=== PATIENT | female | born 1995 | race American Indian/Alaskan Native ===

== ENCOUNTER 2017-08-31 20:17 | Emergency (ER) | payer SELFPAY ==
[2017-08-31 20:54] LABS: Bacteria,Urine 1+ /HPF (Negative); Bilirubin,Urine NEG (Negative); Blood,Urine NEG (Negative); Color,Urine Straw (Yellow); Protein,Urine <15 mg/dL mg/dL (Negative); Urobilinogen,Urine < 2.0 mg/dL (<2.0); WBC,Urine < 1.0 /HPF (0.0-6.0)
[2017-08-31 20:58] LABS: Basophils # (Auto) 0.1 K/mm3 (0.0-0.1); Basophils % (Auto) 0.5 % (0.0-1.8); Eosinophils # (Auto) 0.2 K/mm3 (0.0-0.4); Eosinophils % (Auto) 1.5 % (0.0-4.3); Hematocrit 40.9 % (30.3-42.9); Hemoglobin 12.7 gm/dl (10.1-14.3); Lymphocytes # (Auto) 3.7 K/mm3 (1.2-5.4); Mean Corpuscular HGB Conc 31 % (30-34); Mean Corpuscular Volume 72 fl (79-97); Monocytes # (Auto) 0.8 K/mm3 (0.0-0.8); Monocytes % (Auto) 4.7 % (0.0-7.3); Platelet Count 504 K/mm3 (140-440); Red Blood Count 5.66 M/mm3 (3.65-5.03); Red Cell Distribution Width 17.9 % (13.2-15.2)
[2017-08-31 21:02] LABS: Mean Corpuscular Hemoglobin 22 pg (28-32)
[2017-08-31 21:36] LABS: Alanine Aminotransferase 47 units/L (7-56); Albumin 4.5 g/dL (3.9-5); BUN/Creatinine Ratio 8; Blood Urea Nitrogen 6 mg/dL (7-17); Calcium 9.5 mg/dL (8.4-10.2); Hemolysis Index 8
[2017-08-31] MEDS ORDERED: NACL 0.9% 1000 ML 1,000 ML IV ONE (22:17)
[2017-08-31] MEDS ORDERED: HumuLIN R IV ONE (22:18)
--- NOTE | 2017-08-31 22:24 | Emergency Department Report ---
HPI - General Chief Complaint: Abdominal Pain Time Seen by Provider: 08/31/17 22:11 - HPI HPI: 22-year-old female presents to the emergency department with complaint of some lower abdominal and/or pelvic discomfort along with some nausea without vomiting and going on since this morning. Patient found out that she was yesterday home test. Her last menstrual cycle was about 6 weeks ago. She denies any fever, dysuria, vaginal bleeding or discharge. She has not taken anything for her symptoms prior to presentation. No recent travel or sick contacts at home. Patient has a past medical history of diabetes, anemia and eczema. She is not on any medications for her diabetes. She does not have a primary care physician or [facility]. ED Past Medical Hx - Past Medical History Hx Diabetes: Yes Additional medical history: Anemia, Eczema - Surgical History Additional Surgical History: Right wrist - Social History Smoking Status: Never Smoker Substance Use Type: None - Medications Home Medications: Home Medications Medication Instructions Recorded Confirmed Last Taken Type Vit Calc,Iron,Folic 1 each PO QDAY #30 tablet 09/01/17 Unknown Rx [ Vitamins] ED Review of Systems ROS: Stated complaint: ABD PAIN Other details as noted in HPI Comment: All other systems reviewed and negative Constitutional: denies: chills, fever Eyes: denies: eye pain, eye discharge, vision change ENT: denies: ear pain, throat pain Respiratory: denies: cough, shortness of breath, wheezing Cardiovascular: denies: chest pain, palpitations Gastrointestinal: abdominal pain, nausea. denies: vomiting Genitourinary: denies: dysuria, discharge Musculoskeletal: denies: back pain, joint swelling, arthralgia Skin: denies: rash, lesions Neurological: denies: headache, weakness, paresthesias Physical Exam - Physical Exam Vital Signs: Vital Signs 08/31/17 20:26 Temperature 98.9 F Pulse Rate 111 H Respiratory 18 Rate Blood Pressure 116/71 O2 Sat by Pulse 99 Oximetry ED Course Vital Signs 08/31/17 20:26 Temperature 98.9 F Pulse Rate 111 H Respiratory 18 Rate Blood Pressure 116/71 O2 Sat by Pulse 99 Oximetry ED Medical Decision Making - Lab Data Result diagrams: 08/31/17 20:34 08/31/17 20:34 Critical care attestation.: If time is entered above; I have spent that time in minutes in the direct care of this critically ill patient, excluding procedure time. ED Disposition Clinical Impression: Hyperglycemia Qualifiers: Weeks of gestation: less than 8 weeks Qualified Code(s): Z3A.01 - Less than 8 weeks gestation of Disposition: DC- TO HOME OR SELFCARE Is pt being admited?: No Condition: Stable Instructions: (ED), Diabetic Hyperglycemia (ED) Additional Instructions: Please follow up with an [facility] in the next few days. Return to the emergency Department with any worsening of her symptoms, development of vaginal bleeding, or any acute distress. I'm starting you on vitamins. Please try and stay away from foods that are high in sugar, carbohydrates and starches to help with your blood sugar. Keep a blood sugar log. I'm giving him multiple referrals for primary care clinics in the area. Prescriptions: Vit Calc,Iron,Folic [ Vitamins] 1 each PO QDAY #30 tablet Referrals: PRIMARY CARE [Primary Care Provider] - 3-5 Days [facility] [Outside] - 3-5 Days [facility] [Outside] - 3-5 Days [facility] [Provider Group] - 3-5 Days [facility] [Provider Group] - 3-5 Days [facility] [Outside] - 3-5 Days Time of Disposition: 01:51
--- NOTE | 2017-08-31 23:59 | Ultrasound Report ---
FINAL REPORT PROCEDURE: US OB TRANSVAGINAL TECHNIQUE: Real-time transvaginal sonography of the uterus, placenta, amniotic fluid, adnexa, and fetus was performed with image documentation. Measurements were obtained to determine age/size. M-mode Doppler was used to document heartbeat. CPT 81632 HISTORY: pelvic cramping, pain, COMPARISON: No prior studies are available for comparison. FINDINGS: CRL: 8.8 mm, which corresponds to a gestational age of: 5 weeks, 5 days. Yolk Sac: Normal. Embryonic Cardiac Activity: 96 beats per minute. Irregular. Gestational Sac: Normal. Amniotic fluid: Normal. Cervix: Normal. Right Ovary: It measures 4.3 x 2.3 x 2.3 centimeters. 1.8 x 1.6 centimeter echogenic lesion is noted most likely representing hemorrhagic corpus luteum. Left Ovary: Normal. It measures 3.3 x 1.7 x 2.2 centimeters. Estimated delivery date: 04/28/2018 Uterus and adnexa: Normal. IMPRESSION: Single live intrauterine gestation at approximately 5 weeks and 5 days. EDC by US 04/28/2018
--- NOTE | 2017-08-31 23:59 | Ultrasound Report ---
FINAL REPORT PROCEDURE: US OB < = 14 WEEKS FETUS TECHNIQUE: Real-time transabdominal sonography of the uterus, placenta, amniotic fluid, adnexa, and fetus was performed with image documentation. Measurements were obtained to determine age/size. M-mode Doppler was used to document heartbeat. CPT 24157 HISTORY: pelvic cramping, pain, COMPARISON: No prior studies are available for comparison. FINDINGS: CRL: 8.8 mm, which corresponds to a gestational age of: 5 weeks, 5 days. Yolk Sac: Normal. Embryonic Cardiac Activity: 96 beats per minute. Irregular. Gestational Sac: Normal. Amniotic fluid: Normal. Cervix: Normal. Right Ovary: It measures 4.3 x 2.3 x 2.3 centimeters. 1.8 x 1.6 centimeter echogenic lesion is noted most likely representing hemorrhagic corpus luteum. Left Ovary: Normal. It measures 3.3 x 1.7 x 2.2 centimeters. Estimated delivery date: 04/28/2018 Uterus and adnexa: Normal. IMPRESSION: Single live intrauterine gestation at approximately 5 weeks and 5 days. EDC by US 04/28/2018
[2017-09-01 02:34] VITALS: BP 117/75
== END 2017-09-01 02:34 | disposition home or self-care (01) ==
LOC: ED 20:17
DX: O24.419 Gestational diabetes mellitus in pregnancy, unspecified control (principal); Z3A.01 Less than 8 weeks gestation of pregnancy
CPT/HCPCS: 36415; 76801; 76817; 80053; 81001; 82962; 83690; 84703; 85025; 96361; 96374; 99284; J7030; J1815

== ENCOUNTER 2017-10-31 20:02 | Emergency (ER) | payer MEDICAID, OTHER ==
[2017-10-31 20:14] VITALS: BP 126/82
[2017-10-31] MEDS ORDERED: NACL 0.9% 1000 ML 1,000 ML IV ONE (20:17)
[2017-10-31 20:38] LABS: Basophils # (Auto) 0.1 K/mm3 (0.0-0.1); Basophils % (Auto) 0.3 % (0.0-1.8); Eosinophils # (Auto) 0.3 K/mm3 (0.0-0.4); Eosinophils % (Auto) 1.9 % (0.0-4.3); Hematocrit 36.8 % (30.3-42.9); Hemoglobin 11.7 gm/dl (10.1-14.3); Lymphocytes # (Auto) 3.4 K/mm3 (1.2-5.4); Lymphocytes % (Auto) 22.7 % (13.4-35.0); Mean Corpuscular HGB Conc 32 % (30-34); Mean Corpuscular Volume 76 fl (79-97); Monocytes # (Auto) 0.6 K/mm3 (0.0-0.8); Monocytes % (Auto) 4.3 % (0.0-7.3); Platelet Count 439 K/mm3 (140-440); Red Blood Count 4.88 M/mm3 (3.65-5.03); Red Cell Distribution Width 18.1 % (13.2-15.2)
[2017-10-31 20:42] LABS: Mean Corpuscular Hemoglobin 24 pg (28-32)
[2017-10-31 20:49] LABS: Alanine Aminotransferase 45 units/L (7-56); Albumin 4.1 g/dL (3.9-5); BUN/Creatinine Ratio 10; Blood Urea Nitrogen 5 mg/dL (7-17); Calcium 9.5 mg/dL (8.4-10.2); Hemolysis Index 3
[2017-10-31 22:34] LABS: Bacteria,Urine 1+ /HPF (Negative)
[2017-10-31 22:40] LABS: Bilirubin,Urine NEG (Negative); Blood,Urine NEG (Negative); Color,Urine Yellow (Yellow); Protein,Urine <15 mg/dL mg/dL (Negative); Urobilinogen,Urine < 2.0 mg/dL (<2.0)
[2017-10-31 22:41] LABS: WBC,Urine < 1.0 /HPF (0.0-6.0)
--- NOTE | 2017-11-01 | Ultrasound Report ---
FINAL REPORT EXAM: US OB > = 14 WEEKS FETUS HISTORY: Positive HCG and abdominal pain. TECHNIQUE: Transabdominal sonographic evaluation was performed of the female pelvis with and without color Doppler imaging. PRIORS: Ultrasound dated 08/31/2017. FINDINGS: A single intrauterine gestation is present in breech presentation. Amniotic fluid is subjectively within normal limits. The placenta is put position posteriorly. The cervix is closed. Measurements: BPD: 2.74 cm, 14 weeks and 6 days ([facility]) HC: 10.60 cm, 15 weeks and 0 days ([facility]) AC: 7.55 cm, 14 weeks and 0 days ([facility]) FL: 1.48 cm, 14 weeks and 3 days ([facility]) Head circumference 4/abdominal circumference ratio: 1.40 Cephalic index 80.4. Cervical length: 4.3 cm heart rate-156 beats per minute. Estimated age by ultrasound criteria 14 weeks 4 days. IMPRESSION: Single, viable intrauterine gestation. Estimated age by ultrasound criteria 14 weeks and 4 days. Recommend follow-up anatomic survey at 20-22 weeks.
--- NOTE | 2017-11-01 00:21 | Emergency Department Report ---
ED Female HPI - General Chief complaint: Abdominal Pain Stated complaint: ABD PAIN,VAG SWELLING Time Seen by Provider: 11/01/17 00:14 Source: patient Mode of arrival: Ambulatory Limitations: No Limitations - History of Present Illness Initial comments: Patient is a 22 years old female 1 para 0 at 14 weeks . Patient presented to the ER complaining of lower abdominal pain and cramping for the last week. Patient denied any vaginal bleeding or vaginal discharge. She stated that she been having some urinary frequency and dysuria. Patient denied any fever, vomiting, chest pain or shortness of breath. MD Complaint: pelvic pain - Related Data Previous Rx's Medication Instructions Recorded Last Taken Type Vit Calc,Iron,Folic 1 each PO QDAY #30 tablet 09/01/17 Unknown Rx [ Vitamins] Allergies Allergy/AdvReac Type Severity Reaction Status Date / Time No Known Allergies Allergy Unverified 08/31/17 20:30 ED Review of Systems ROS: Stated complaint: ABD PAIN,VAG SWELLING Other details as noted in HPI Comment: All other systems reviewed and negative Constitutional: denies: chills, fever Cardiovascular: denies: chest pain Gastrointestinal: abdominal pain, nausea Neurological: denies: headache, weakness, numbness, paresthesias, confusion, abnormal gait, vertigo ED Past Medical Hx - Past Medical History Previous Medical History?: Yes Hx Diabetes: Yes Hx Asthma: Yes Additional medical history: Anemia, Eczema - Surgical History Past Surgical History?: Yes Additional Surgical History: Right wrist - Social History Smoking Status: Never Smoker Substance Use Type: None - Medications Home Medications: Home Medications Medication Instructions Recorded Confirmed Last Taken Type Vit Calc,Iron,Folic 1 each PO QDAY #30 tablet 09/01/17 Unknown Rx [ Vitamins] ED Physical Exam - General Limitations: No Limitations General appearance: alert - Head Head exam: Present: atraumatic, normocephalic, normal inspection - ENT ENT exam: Present: normal exam, normal orophraynx, mucous membranes moist - Neck Neck exam: Present: normal inspection, full ROM. Absent: tenderness, meningismus, lymphadenopathy, thyromegaly - Respiratory Respiratory exam: Present: normal lung sounds bilaterally. Absent: respiratory distress, wheezes, rales, rhonchi, chest wall tenderness - Cardiovascular Cardiovascular Exam: Present: regular rate, normal rhythm, normal heart sounds - GI/Abdominal GI/Abdominal exam: Present: soft, normal bowel sounds. Absent: distended, tenderness, guarding, rebound, rigid, organomegaly, mass, bruit, pulsatile mass , hernia - Extremities Exam Extremities exam: Present: normal inspection, full ROM, normal capillary refill - Back Exam Back exam: Present: normal inspection, full ROM - Neurological Exam Neurological exam: Present: alert, oriented X3, CN II-XII intact, normal gait, reflexes normal - Skin Skin exam: Present: warm, intact, normal color ED Course Vital Signs 10/31/17 20:03 Temperature 99.1 F Pulse Rate 92 H Respiratory 18 Rate Blood Pressure 126/82 O2 Sat by Pulse 100 Oximetry ED Medical Decision Making - Lab Data Result diagrams: 10/31/17 20:21 10/31/17 20:21 - Radiology Data Radiology results: report reviewed Referring Physician: JESSI CHOUDHARY Patient Name: PACO CHIANG Date of : 1995 Sex: Female Report Date: 2017-10-31 Report Status: [place] [address] Ultrasound Report Signed Patient: PACO CHIANG MR#: [id number] : 1995 Acct:[id number] Age/Sex: 22 / F ADM Date: 10/31/17 Loc: ED Attending Dr: Ordering Physician: JESSI CHOUDHARY MD Date of Service: 10/31/17 Procedure(s): US OB >= 14 weeks Fetus Accession Number(s): [id number] cc: JESSI CHOUDHARY MD FINAL REPORT EXAM: US OB gt; = 14 WEEKS FETUS HISTORY: Positive HCG and abdominal pain. TECHNIQUE: Transabdominal sonographic evaluation was performed of the female pelvis with and without color Doppler imaging. PRIORS: Ultrasound dated 08/31/2017. FINDINGS: A single intrauterine gestation is present in breech presentation. Amniotic fluid is subjectively within normal limits. The placenta is put position posteriorly. The cervix is closed. Measurements: BPD: 2.74 cm, 14 weeks and 6 days ([facility]) HC: 10.60 cm, 15 weeks and 0 days ([facility]) AC: 7.55 cm, 14 weeks and 0 days ([facility]) FL: 1.48 cm, 14 weeks and 3 days ([place]) Head circumference 4/abdominal circumference ratio: 1.40 Cephalic index 80.4. Cervical length: 4.3 cm heart rate-156 beats per minute. Estimated age by ultrasound criteria 14 weeks 4 days. IMPRESSION: Single, viable intrauterine gestation. Estimated age by ultrasound criteria 14 weeks and 4 days. Recommend follow-up anatomic survey at 20-22 weeks. Transcribed By: DT Dictated By: HOSEA ROMERO DO Electronically Authenticated By: HOSEA ROMERO DO Signed Date/Time: 10/31/172352 DD/ 52 TD/TT: 10/31/172352 Critical care attestation.: If time is entered above; I have spent that time in minutes in the direct care of this critically ill patient, excluding procedure time. ED Disposition Clinical Impression: Abdominal pain affecting , UTI (urinary tract infection) Disposition: - TO HOME OR SELFCARE Is pt being admited?: No Condition: Stable Instructions: Abdominal Pain in (ED), Urinary Tract Infection in Women (ED) Referrals: EVERT OSBORNE MD [Primary Care Provider] - 3-5 Days
== END 2017-11-01 00:37 | disposition home or self-care (01) ==
LOC: ED 20:02
DX: O23.42 Unspecified infection of urinary tract in pregnancy, second trimester (principal); E11.9 Type 2 diabetes mellitus without complications; J45.909 Unspecified asthma, uncomplicated; Z3A.14 14 weeks gestation of pregnancy
CPT/HCPCS: 36415; 76805; 80053; 81001; 84702; 85025; 99284